=== PATIENT | male | born 1950 | race Caucasian/White ===

== ENCOUNTER → 2016-10-22 | Day surgery (SDC) | payer BC ==
[~2016-10-22] MED LIST: ASPIR 8181 MG PO; FELODIPINE ER10 MG PO; FEOSOL325 MG PO; FLOMAX0.4 MG PO; FORTAMET500 MG PO; LIPITOR TAB 2020 MG PO; PAROXETINE HCL20 MG PO; TOPROL XL200 MG PO; VITAMIN D31000 UNI1 PO
== END | disposition home or self-care (01) ==
LOC: OR 06:21
PROVIDERS: Internal Medicine Gastroenterology
PROC: 0DBK8ZZ Excision of Ascending Colon, Via Natural or Artificial Opening Endoscopic (ICD-10-PCS; 2016-10-22)
PROC: 0DBH8ZZ Excision of Cecum, Via Natural or Artificial Opening Endoscopic (ICD-10-PCS; principal; 2016-10-22 08:00)
DX: Z12.11 Encounter for screening for malignant neoplasm of colon (principal); D12.0 Benign neoplasm of cecum; D12.2 Benign neoplasm of ascending colon; K57.30 Diverticulosis of large intestine without perforation or abscess without bleeding; K64.0 First degree hemorrhoids; I10 Essential (primary) hypertension; E11.9 Type 2 diabetes mellitus without complications; R01.1 Cardiac murmur, unspecified; N40.0 Benign prostatic hyperplasia without lower urinary tract symptoms; M19.90 Unspecified osteoarthritis, unspecified site; E78.5 Hyperlipidemia, unspecified; Z79.82 Long term (current) use of aspirin; Z86.010 Personal history of colon polyps; Z79.899 Other long term (current) drug therapy
CPT/HCPCS: 82962; J7030

== ENCOUNTER 2020-11-13 22:01 | Emergency (ER) | payer MEDICARE ==
[2020-11-14 02:03] LABS: HEMOGLOBIN 15.2 gm/dl (14.0-17.5); RED BLOOD COUNT 4.58 M/UL (4.20-5.50); WHITE BLOOD COUNT 7.6 K/UL (4.5-11.0)
[2020-11-14 02:30] LABS: BUN/CREATININE RATIO 19 (0-10)
[2020-11-14] MEDS ORDERED: BENTYL 20MG TAB20 MG PO (08:32)
== END 2020-11-14 06:40 | disposition home or self-care (01) ==
LOC: ER1 22:01
PROVIDERS: Physician Assistant
DX: R10.13 Epigastric pain (principal); I10 Essential (primary) hypertension
CPT/HCPCS: 71045; 80053; 81001; 82550; 82553; 83690; 83874; 84484; 85025; 93005; 99284

== ENCOUNTER → 2021-09-12 | Day surgery (SDC) | payer MEDICARE ==
[~2021-09-12] MED LIST changes: +BENTYL 20MG TAB20 MG PO; +FAMOTIDINE20 MG PO; +HYDRALAZINE HCL50 MG PO; +LEVOTHYROXINE25 MC1 PO; +LISINOPRIL40 MG PO; +VITAMIN B-12500 MCG PO
== END | disposition home or self-care (01) ==
LOC: OR 05:22
PROVIDERS: Surgery
PROC: 0DJD8ZZ Inspection of Lower Intestinal Tract, Via Natural or Artificial Opening Endoscopic (ICD-10-PCS; principal; 2021-09-12 07:30)
DX: Z12.11 Encounter for screening for malignant neoplasm of colon (principal); Z20.822 Contact with and (suspected) exposure to COVID-19; E78.5 Hyperlipidemia, unspecified; K21.9 Gastro-esophageal reflux disease without esophagitis; E03.9 Hypothyroidism, unspecified; I12.9 Hypertensive chronic kidney disease with stage 1 through stage 4 chronic kidney disease, or unspecified chronic kidney disease; N18.9 Chronic kidney disease, unspecified; Z79.890 Hormone replacement therapy; Z79.899 Other long term (current) drug therapy
CPT/HCPCS: J2001; J7120